=== PATIENT | female | born 1950 | race Caucasian/White ===

== ENCOUNTER 2016-08-20 08:17 | Emergency (ER) | payer MEDICARE, BC ==
[2016-08-20] MEDS ORDERED: HYDROcodone/ACETAMINOPHEN 1 EACH TABLET PO ONE (08:45)
[2016-08-20] MEDS ORDERED: HYDROcodone/ACETAMINOPHEN 1 EACH TABLET ONE (08:47)
[2016-08-20 08:52] VITALS: BP 143/71
--- NOTE | 2016-08-20 08:54 | ERNOTE ---
Date of Service: 08/20/16 Time Seen by Provider: 08/20/16 08:34 Stated Complaint: COUGH Presenting Symptoms:: cough Source: patient, family Immunizations: IMMUNIZATION HX Immunizations Up to Date No History of Influenza Vaccine No Hx Pneumococcal Vaccination No Allergies/Adverse Reactions: Allergies No Known Allergies Allergy (Unverified 08/20/16 08:31) Home Medications: HOME MEDICATIONS Enalapril Maleate PO DAILY 08/20/16 [Last Taken Unknown] Guaifenesin/Pseudoephedrne HCl [Mucinex D ER 1,200-120 mg Tab] 1 tab PO Q12H # 30 tab 08/20/16 [Last Taken Unknown] HYDROcodone/ACETAMINOPHEN [[place] 5-325 Tablet] 1 - 2 tab PO Q6H PRN #40 tab [Last Taken Unknown] Levothyroxine Sodium PO DAILY 08/20/16 [Last Taken Unknown] Oxymetazoline HCl [Afrin Nasal [place]] 2 sprays NS BID 5 Days 08/20/16 [Last Taken Unknown] - History of Present Ilness Narrative: About a week ago, developed a cough. It has now become productive of yellow phlegm and is severe enough she can't sleep. When she coughs hard enough, she feels as if she can't get her breath. (when I was ausultating her lungs, she became light headed). No fever. ill with similar, but not so severe. Congested nose and ears. Post nasal drip, scratchy throat. Timing: getting worse, intermittent Severity: mild, moderate Frequency/Possible Cause: Reports: no prior episodes Modifying Factors - Improves: Reports: nothing Modifying Factors - Worsens: Reports: activity, coughing, lying down Associated Symptoms: Reports: cough, nasal congestion, nasal drainage, lightheadedness, sore throat, muscle aches Prior Treatment: Denies: recently seen, currently on antibiotics Review of Systems - Review of Systems Constitutional: Present: fatigue, malaise EYE: Present: no symptoms reported ENT: Present: See HPI Respiratory: Present: See HPI Cardiology: Present: no symptoms reported Gastrointestinal/Abdominal: Present: no symptoms reported Genitourinary: Present: no symptoms reported Musculoskeletal: Present: no symptoms reported Skin: Present: no symptoms reported Neurological: Present: no symptoms reported Endocrine: Present: no symptoms reported Hematologic/Lymphatic: Present: no symptoms reported Psych: Present: no symptoms reported All Other Systems: All systems neg except as marked - Patient's Past Medical History Patient History - Medical: Hypothyroidism Patient History - Cardiac/Respiratory: Hypertension Patient History - Cancer: No Hx of Cancer Patient History - Surgical Procedures: No surgical history Patient History - Other: None - Social History Living Situations: spouse Smoking Status: Former smoker - stopped thirty years ago - Immunizations Immunizations Up to Date: No Hx Pneumococcal Vaccination: No History of Influenza Vaccine: No Physical Exam - Physical Exam General Appearance: Present: wd/wn, alert, other - tearful from fatigue Eye Exam: Normal inspection: bilateral, PERRL: bilateral, EOMI: bilateral Ears, Nose, Throat: Present: normal ENT inspection, abnormal TM (R) - retracted , abnormal TM (L) - retracted, nasal congestion, pharyngeal erythema, other - hoarseness Neck: Present: normal inspection, nontender. Absent: lymphadenopathy (R), lymphadenopathy (L) Respiratory: Present: no respiratory distress, normal breath sounds, no accessory muscle use, chest nontender Cardiovascular/Chest: Present: regular rate, rhythm, no murmur Gastrointestinal/Abdominal: Present: normal bowel sounds, nontender, nondistended, soft, no organomegaly Back Exam: Present: normal inspection Extremity Exam: Present: normal inspection, no edema Neurological Exam: Present: alert, oriented Skin Exam: Present: normal color, warm/dry ED Progress - Vital Signs Patient's Vital Signs:: I have reviewed the patient's vital signs. Vital Signs: Vital Signs 08/20/16 08:22 Temperature 37.1 C Pulse Rate 79 Respiratory 14 Rate Blood Pressure 156/71 O2 Sat by Pulse 96 Oximetry - Progress/Reassessment Chief Complaint: Cough Departure - Departure Clinical Impression: Viral respiratory illness Disposition: Home self-care Condition: Good Instructions: Viral Respiratory Infection, [id number] Additional Instructions: Followup with your health care provider in 1-2 days. Hot tea with 1 tsp lemon juice and 1 tblsp honey taken as often as hourly. Referrals: Brittney De La Paz, WE[facility]ERMAN [Primary Care Provider] - Prescriptions: Guaifenesin/Pseudoephedrne HCl [Mucinex D ER 1,200-120 mg Tab] 1 tab PO Q12H # 30 tab HYDROcodone/ACETAMINOPHEN [[place] 5-325 Tablet] 1 - 2 tab PO Q6H PRN #40 tab PRN Reason: Cough Oxymetazoline HCl [Afrin Nasal [place]] 2 sprays NS BID 5 Days
== END 2016-08-20 09:02 | disposition home or self-care (01) ==
LOC: ER 08:17
DX: B34.9 Viral infection, unspecified (principal)